=== PATIENT | male | born 1950 | race Caucasian/White ===

== ENCOUNTER 2018-02-26 05:21 | Observation (INO) | payer OTHER ==
[2018-02-26] MEDS ORDERED: LR 1,000 ML IV ONE (05:32)
[2018-02-26] MEDS ORDERED: ceFAZolin 3 GM in D5W 100 ML IV ONE (06:00)
[2018-02-26] MEDS ORDERED: BUPIVACAINE 0.5% 30 ML SDV ONE (06:47)
--- NOTE | 2018-02-26 07:04 | PDANEPAE ---
ANE History of Present Illness thigh mass here for excision ANE Past Medical History - Cardiovascular History Hx Hypertension: Yes Hx Arrhythmias: No Hx Chest Pain: No Hx Coronary Artery / Peripheral Vascular Disease: No Hx CHF / Valvular Disease: Yes Hx Palpitations: No Cardiovascular History Comment: HYPERLIPIDEMIA - Pulmonary History Hx COPD: No Hx Asthma/Reactive Airway Disease: No Hx Recent Upper Respiratory Infection: No Hx Oxygen in Use at Home: No Hx Sleep Apnea: No Sleep Apnea Screening Result - Last Documented: Positive Pulmonary History Comment: SOB W/EXERTION. PEs [address] Y[address] AGO FOUND ON [address] SCAN AND STARTED ON PRADAXA - RECENTLY DC'D PRADAXA 3 WKS AGO DUE TO BLEEDING PRESSURE SORES ON BUTTOCKS L.D. 01/29/18. STASIS DERMATITIS - Neurologic History Hx Cerebrovascular Accident: No Hx Seizures: No Hx Dementia: No Neurologic History Comment: PERIPHERAL NEUROPATHY - Endocrine History Hx Diabetes: No Obesity: severe - Renal History Hx Renal Disorders: No - Liver History Hx Hepatic Disorders: No - Neurological & Psychiatric Hx Hx Neurological and Psychiatric Disorders: No - Cancer History Hx Cancer: Yes Cancer History Comment: MELANOMA - Congenital Disorder History Hx Congenital Disorders: No - GI History Hx Gastrointestinal Disorders: No Gastrointestinal History Comment: HX HIATAL HERNIA - Other Health History Other Health History: FACTOR XII DEFICIENCY. MORBID OBESITY. PRESSURE SORES ON BUTTOCKS CURRENTLY. SORE BOTTOM R FOOT - Chronic Pain History Chronic Pain: Yes (L HIP PAIN & ARTHRITIS IN JOINTS) - Surgical History Prior Surgeries: TONSILLECTOMY. R KNEE MENISCUS. PILONIDAL CYST. MELANOMA [facility]VENT ANE Review of Systems Review of Systems: - Exercise capacity Exercise capacity: limited by disability, unable to assess METS (RN): 2 METS ANE Patient History - Allergies Allergies/Adverse Reactions: codeine Allergy (Verified 02/25/18 12:37) COUGHING SPELL & PASSED OUT doxycycline Allergy (Verified 02/25/18 12:37) UNK duloxetine [From Cymbalta] Allergy (Verified 02/25/18 12:37) UNK oxymorphone [From Opana] Allergy (Verified 02/25/18 12:37) SOB pregabalin [From Lyrica] Allergy (Verified 02/25/18 12:37) WT GAIN promethazine [From Phenergan] Allergy (Verified 02/25/18 12:37) COUGHING SPELL & PASSED OUT Sulfa (Sulfonamide Antibiotics) Allergy (Verified 02/25/18 12:37) Rash tapentadol [From Nucynta] Allergy (Verified 02/25/18 12:37) UNK - Home Medications Home Medications: Acetazolamide 02/25/18 [Last Taken 02/25/18] Bystolic 02/25/18 [Last Taken 02/26/18 02:00] Ferrous Gluconate 02/25/18 [Last Taken 02/26/18 02:00] Furosemide 02/25/18 [Last Taken 02/25/18] Klor-Con 02/25/18 [Last Taken 02/26/18 02:00] Pradaxa 02/25/18 [Last Taken 02/05/18] Tramadol HCl 02/25/18 [Last Taken 02/26/18 02:00] - NPO status NPO Status: no food or drink >8 hours NPO Since - Liquids (Date): 02/26/18 NPO Since - Liquids (Time): 02:00 NPO Since - Solids (Date): 02/25/18 NPO Since - Solids (Time): 18:00 - Anes Hx Anes Hx: post operative nausea, post operative nausea and vomiting - Smoking Hx Smoking Status: Never smoked - Alcohol Use Alcohol Use: Rarely - Family Anes Hx Family Anes Hx: none Family Hx Anesthesia Complications: NEG ANE Labs/Vital Signs - Labs Result Diagrams: 02/26/18 06:30 - Vital Signs Vital Signs: reviewed preoperatively; see RN documention for details Height: 172.72 cm Weight: 204.117 kg ANE Physical Exam - Airway Neck exam: FROM, increased neck circumference Mallampati Score: Class 3 - Pulmonary Pulmonary: no respiratory distress - Cardiovascular Cardiovascular: regular rate and rhythym - ASA Status ASA Status: III ANE Anesthesia Plan Anesthesia Plan: general endotracheal anesthesia Lines/Monitors: arterial line
--- NOTE | 2018-02-26 07:07 | PDHPUP ---
History & Physical Update H&P update statement: This history and physical update is based on an assessment of the patient which was completed after admission or registration (within 24 hours), but prior to the surgery/procedure. H&P update: H&P reviewed & patient examined, no change in patient's condition since H&P completed
[2018-02-26] MEDS ORDERED: SCOPOLAMINE HYDROBROMIDE 1 MG/3 DAYS PATCH TD SCH (07:15)
[2018-02-26] MEDS ORDERED: ONDANSETRON 4 MG/2 ML VIAL IVP PRN ×2 (08:33→08:56)
[2018-02-26] MEDS ORDERED: ONDANSETRON DISINTEGRATING 4 MG TAB PO PRN (08:33)
[2018-02-26] MEDS ORDERED: HYDROCODONE/APAP 5/325 TAB PO PRN ×2 (08:33→08:56)
[2018-02-26] MEDS ORDERED: diphenhydrAMINE 25 MG CAP PO PRN (08:33)
[2018-02-26] MEDS ORDERED: ACETAMINOPHEN 325 MG TAB PO PRN (08:33)
[2018-02-26] MEDS ORDERED: HYDROmorphONE/DILAUDID 1 MG/ML INJ IVP PRN (08:33)
--- NOTE | 2018-02-26 08:33 | POSTOPPROG ---
Post Op Note Date of Operation: 02/26/18 Surgeon: Abby Saul Practice Lead: chuy Anesthesiologist: rica Anesthesia: IV Sedation Pre-op Diagnosis: R thigh mass Post-op Diagnosis: same, lymphedema Indication: 67yo M with bothersome R thigh mass Procedure: excisional biopsy R thigh Findings: mass [id number] Inf/Abcess present in the surg proc area at time of surgery?: No Drains: Jairo Cline Specimen(s): mass for permanent
[2018-02-26] MEDS ORDERED: traMADol 50 MG TAB PO PRN ×2 (08:36→15:54)
[2018-02-26] MEDS ORDERED: HYDROmorphONE/DILAUDID 2 MG/ML INJ IVP PRN (08:56)
[2018-02-26] MEDS ORDERED: PROMETHAZINE HCL 25 MG/ML INJ IVP PRN (08:56)
[2018-02-26] MEDS ORDERED: oxyCODONE IR 5 MG TAB PO PRN (08:56)
[2018-02-26] MEDS ORDERED: fentaNYL 100 MCG/2 ML INJ IVP PRN (08:56)
[2018-02-26] MEDS ORDERED: ACETAMINOPHEN 500 MG TAB PO PRN (08:56)
[2018-02-26] MEDS ORDERED: NALOXONE HCL 0.4 MG/ML INJ IVP PRN (08:56)
--- NOTE | 2018-02-26 08:57 | POSTANESTH ---
Post Anesthetic Evaluation Cardiovascular Status: Normal, Stable, Similar to Pre-Op Cond Respiratory Status: Normal, Stable, Similar to Pre-op Cond. Level of Consciousness/Mental Status: Can Participate in Eval, Mildly Sleepy, Arousable Pain Control: Adequate, Prn Tx Ordered Nausea/Vomiting Control: Adequate, Prn Tx Ordered Complications Possibly Related to Anesthesia: None Noted
--- NOTE | 2018-02-26 09:16 | GOP ---
[f rep st] OPERATIVE REPORT DATE OF OPERATION: 02/26/2018 SURGEON: Abby Saul MD SWIMMER: Hallie Quintanilla, CEDRICK. ANESTHESIA: General. ANESTHESIOLOGIST: Jameel Lafleur MD. PREOPERATIVE DIAGNOSIS: Right groin mass. POSTOPERATIVE DIAGNOSIS: Right groin mass. PROCEDURE PERFORMED: Excision of right groin mass, 30 x 15. FINDINGS: Lots of lymphatic drainage. ESTIMATED BLOOD LOSS: 25 cc. INDICATIONS: The patient is a 67-year-old man with morbid obesity and lymphedema. He has a mass tylor t is increasingly bothersome in his right groin and interfering with movement as well as creating dis comfort throughout the day. DESCRIPTION OF PROCEDURE: The patient was brought into the operating room and placed supine on the t able. He was kept on his gurney due to his obesity. General anesthesia was administered. A [place] c atheter was placed. His bilateral groins were prepped with Betadine and draped in the usual sterile fashion. I made an ellipse over the mass and excised it. Hemostasis was controlled with electrocaut anuj. A 15 round silicone drain was placed and sutured in place with 3-0 nylon. The deep layer was c losed with 3-0 Vicryl and skin closed with holland. A Prevena wound VAC was applied. He was awakene d in the operating room, extubated, and transferred to PACU in stable condition. /[id number]/MODL
[2018-02-26 14:04] VITALS: BP 156/74
[2018-02-26] MEDS ORDERED: LORazepam 0.5 MG TAB PO PRN (14:20)
--- NOTE | 2018-02-26 14:31 | WOCRNPDOC ---
WOCRN Advanced Assessment Note - Skin Integrity Problem, Advanced Assess Right Heel Dressing Type: Mepilex Dressing Description: Intact, Shadowed Exudate Amount: Minimal Exudate Color: Clear, Yellow Exudate Characteristic(s): Serosanguinous Integumentary Issue Intervention: Dressing Applied, Dressing Removed Sofie Wound Tissue: Macerated Wound Bed Color: [place] Wound Bed Constitution: Smooth Tissue Wound Edges: Attached, Well Defined Site Measurement - Head-to-Toe Length X Width X Depth (cm): 4.3x2.4x0.4 Skin Integrity Problem Comment: Patient with chronic plantar surface right heel wound, followed by podiatry in [place]. Dressing removed with help from JOLANTA Evans. Wound cleaned with NS and gauze. Rose placed in wound bed, followed by hydrofera blue ready cut to fit wound bed and secured in place with steri strips. Covered with allevyn life. All patient questions answered. Wound care will round again later next week.
--- NOTE | 2018-02-26 16:48 | PDIAF ---
- Diagnosis Diagnosis: R groin mass/lymphedema Code Status: Full Code - Medication Management Discharge Medications: Medications to Continue on Transfer Ferrous Sulfate [Ferrous Sulf 325 MG (*)] 325 mg PO DAILY 02/25/18 [Last Taken 02/26/18 02:00] Furosemide [Lasix 80 MG (*)] 80 mg PO DAILY 02/25/18 [Last Taken 02/25/18] Nebivolol HCl [Bystolic 5 mg (*)] 2.5 mg PO DAILY 02/25/18 [Last Taken 02/26/18 02:00] Potassium Cl [Klor-Con 20 meq (*)] 20 meq PO DAILY 02/25/18 [Last Taken 02:00] acetaZOLAMIDE [Diamox] 250 mg PO Q2D 02/25/18 [Last Taken 02/25/18] traMADol [Ultram 50 mg (*)] 100 mg PO Q6HRS PRN 02/25/18 [Last Taken 02/26/18 02 :00] Discharge Medications: Refer to the Discharge Home Medication list for PRN reason. - Orders Services needed: Home Care, Registered Nurse Home Care Face to Face: I certify that this patient was under my care and that I had the required [id number] encounter meeting the encounter requirements on the discharge day. My findings support the fact that the patient is homebound as defined in Home Care Face to Face Continued: CMS Chapter 7 Medicare Benefits Manual 30.1.1 , The condition of the patient is such that there exists a normal inability to leave home and consequently, leaving home would require a considerable and taxing effort. Diet Recommendation: no restrictions on diet Diet Texture: Regular Texture Diet Barraza: Yes Wound Care Instructions: 1. Prevena wound vac - this is a disposable incisional wound vac. Instruction manual sent home with patient. If issues, may contact [facility] for troubleshooting. This dressing will stay in place x 1 week. If there are ongoing issues with leak or the dressing comes off, replace with incisional silver mepilex dressing or equivalent. 2. Please change outer bandage for sacral pressure wounds. Sutures/[place] Site: [place] beneath incisional wound vac - we will remove these in our office in 2-3 weeks. Activity/Weight Bearing Restrictions: no restrictions Additional Instructions: Home health care to provide right groin incision check, wound care for pressure ulcers on bottom, MACKENZIE drain management (record and empty daily), barraza education and management. He has supplemental oxygen at home. He will follow up with Dr. Morris or Hallie PHILIP in 1 week. - Follow Up Care Current Providers and Referrals: MARVIN FARMER [Primary Care Provider] - Abby Saul MD [Medical Doctor] - follow up in 1 week
--- NOTE | 2018-02-26 17:18 | ASMTLACE ---
JEMMA Length of stay for Answers: Less than 1 day current admission Comorbidities - select Answers: Other Notes: right medial thigh mass , all that apply # of Emergency department Answers: 0 visits in the last 6 months Score: 1 Date Signed: 02/26/2018 05:18 PM Electronically Signed By:Sultana Leigh RN
--- NOTE | 2018-02-26 17:21 | ASMTCMCOM ---
CM Note CM Note Notes: Discussed with RN and MD, patient will now discharge home today with own portable wound vac. Will need HHC. Met with patint re: d/c poc, no preference in home care. Spoke with several home cares, none able to accept over weekend and go to [place]. [facility] able to open on Thursday. All information and wound instruction sent to [facility], lvm to confirm they are able to accept on Thursday... patient okay with this plan. Confirmed address and phone #. Will discharge this evening with . Patient understands CM will call over weekend if something changes with [facility]. Plan: Home with Meliza PEOPLES RN Date Signed: 02/26/2018 05:20 PM Electronically Signed By:Sultana Leigh RN
--- NOTE | 2018-02-26 17:29 | SOAPPROG ---
SOAP Progress Note Assessment/Plan: Assessment: s/p excision skin soft tissue by right groin Feels great Complaining most about sitting on couch (do not have a bariatric recliner) and would need a rony to get into bed MACKENZIE with serosang fluid Barraza with clear yellow urine Prevena to suction Would be much more comfortable at home. Less than ideal situation because homecare cannot come until Thursday. Will see if is comfortable with emptying barraza and MACKENZIE Keep barraza x 1 week Check and record MACKENZIE 2x per day Prevena is disposable after one week. If leaks or fails, can remove and place mepilex dressing (providing to patient) Has O2 at home with pulse ox Plan: 02/26/18 17:26 Objective: Vital Signs Temp Pulse Resp BP Pulse Ox 37 C 67 18 156/74 H 96 02/26/18 13:25 02/26/18 13:25 02/26/18 13:25 02/26/18 13:25 02/26/18 13:25 Laboratory Results 02/26/18 06:30 02/25/18 02/26/18 02/27/18 05:59 05:59 05:59 Intake Total 425 Output Total 485 Balance -60 ICD10 Worksheet Patient Problems: Problems Problem Status Onset Soft tissue mass Acute - ICD10 Problem Qualifiers (1) Soft tissue mass
[2018-02-27] MEDS ORDERED: NEBIVOLOL HCL 5 MG TAB PO SCH (09:00)
[2018-02-27] MEDS ORDERED: POTASSIUM CL 20 MEQ TAB PO SCH (09:00)
[2018-02-27] MEDS ORDERED: FUROSEMIDE 80 MG TAB PO SCH (09:00)
[2018-02-27] MEDS ORDERED: acetaZOLAMIDE 250 MG TAB PO SCH (09:00)
[2018-02-27] MEDS ORDERED: FERROUS SULFATE 325 MG TAB PO SCH (09:00)
--- NOTE | 2018-03-02 16:44 | ASMTCMCOM ---
CM Note CM Note Notes: After many referrals made, [facility] able to accept #[phone]. Naya will call and follow-up with patient today. I have also spoke with patient and notified him of plan. Patient has moved his doctor's appointment to Thursday and will follow-up with [facility] if he feels HC is no longer needed. Date Signed: 03/02/2018 04:43 PM Electronically Signed By:Sultana Leigh RN
== END 2018-02-26 18:05 | disposition home health service (06) ==
LOC: F1N 05:21 → EDSTATUS 07:15 → F3E 10:12
PROVIDERS: ADMIT Surgery; ATTEND Surgery
PROC: 0JBL0ZZ Excision of Right Upper Leg Subcutaneous Tissue and Fascia, Open Approach (ICD-10-PCS; principal; 2018-02-26 07:15)
DX: R22.41 Localized swelling, mass and lump, right lower limb (principal); L89.309 Pressure ulcer of unspecified buttock, unspecified stage; E66.9 Obesity, unspecified
CPT/HCPCS: 27339; 88305; G0378; J0690